=== PATIENT | male | born 1955 | race Caucasian/White ===

== ENCOUNTER 2022-05-19 22:58 | Inpatient (IN) ==
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
[2022-05-19 23:28] LABS: iSTAT Creatinine 0.9 mg/dl (0.6-1.3); iSTAT Ionized Calcium 1.04 mmol/l (1.12-1.32); iSTAT Potassium 4.5 mmol/L (3.3-5.0)
[2022-05-19 23:33] LABS: Basophils # (auto) 0.02 K/uL (0-0.2); Basophils % (auto) 0.2 %; Eosinophils # (auto) 0.01 K/uL (0-0.50); Eosinophils % (auto) 0.1 %; Hematocrit (blood only) 39.6 % (42.0-52.0); Hemoglobin 14.3 g/dl (14.0-18.0); Immature Granulocytes # (auto) 0.05 K/uL (0.01-0.20); Immature Granulocytes % (auto) 0.4 %; Lymphocytes # (auto) 2.03 K/uL (1.2-3.4); Mean Corpuscular Hemoglobin 36.4 pg (25.0-34.0); Mean Corpuscular Hgb Conc 36.1 g/dL (32.0-36.0); Mean Corpuscular Volume 100.8 fL (80.0-100.0); Mean Platelet Volume 9.6 fL (9.4-12.4); Monocytes # (auto) 1.64 K/uL (0.11-0.59); Monocytes % (auto) 12.9 %; Neutrophils # (auto) 8.92 K/uL (1.40-6.50); Neutrophils % (auto) 70.4 %; Platelet Count 227 K/uL (130-400); RDW Coefficient of Variation 13.8 % (11.5-14.5); RDW Standard Deviation 51.5 fL (36.4-46.3); Red Blood Count 3.93 M/uL (4.70-6.10); White Blood Count 12.67 K/ul (4.8-10.8)
[2022-05-19] MEDS ORDERED: OPTIRAY 350 100ml IV ONE (23:43)
[2022-05-20 00:30] LABS: Alanine Aminotransferase 23 U/L (7-52); Albumin Globulin Ratio 1.3 (0.9-2); Albumin Level 3.9 gm/dl (3.4-5.0); Alkaline Phosphatase 79 U/L (34-104); Anion Gap 12 (3-11); BUN Creatinine Ratio 12.1 (10-20); Bilirubin,Total 1.2 mg/dl (0.2-1.0); Blood Urea Nitrogen 12 mg/dl (6-23); Calcium 8.6 mg/dl (8.5-10.1); Carbon Dioxide 21 mmol/L (21-32); Chloride 95 mmol/L (98-107); Est GFR (African American) 91.6 ml/min; Globulin 3.1 gm/dl (2.5-4.0); Glucose 99 mg/dl (70-99(Fasting)); Sodium 128 mmol/L (136-145)
[2022-05-20 01:25] LABS: Potassium 3.3 mmol/L (3.5-5.1)
[2022-05-20 01:30] LABS: Appearance Urine Clear (Clear); Bilirubin Urine Negative (Negative); Blood Urine Negative (Negative); Color Urine Yellow; Glucose Urine UA Negative (Negative); Ketones Urine 1+ (Negative); Leukocyte Esterase Urine Negative (Negative); Nitrite Urine Negative (Negative); Protein Urine Negative (Negative); Specific Gravity Urine 1.027 (1.000-1.030); Urobilinogen Urine Negative (Negative); pH Urine 6.5 (4.5-7.5)
[2022-05-20 02:08] LABS: INR 1.1 (0.9-1.1); Prothrombin Time 11.8 Seconds (9.0-12.0)
[2022-05-20] MEDS ORDERED: MULTI-VITAMIN INFUSION 10 ML, THIAMINE HCL 100 MG, FOLIC ACID 1 MG in SODIUM CHLORIDE 0... IV ONE (03:15)
[2022-05-20 04:04] LABS: Troponin I High Sensitivity 21.3 pg/ml (0-20)
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
[2022-05-20 04:42] LABS: Magnesium 1.5 mg/dl (1.7-2.4)
[2022-05-20] MEDS ORDERED: Ativan IV Alcohol Withdrawal--Active Protocol IV PRN (06:58)
[2022-05-20] MEDS ORDERED: LORazepam 2 MG/1 ML VIAL IV PRN ×2 (06:58)
[2022-05-20] MEDS ORDERED: chlordiazePOXIDE ALCOHOL WITHDRAWL 50MG PO STA (06:58)
[2022-05-20] MEDS ORDERED: MAGNESIUM SULFATE / D5W 1 GM/100 ML BAG IV ONE (06:58)
[2022-05-20] MEDS ORDERED: POTASSIUM CHLORIDE CRTAB 20 MEQ TABCR PO STA (06:58)
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
[2022-05-20] MEDS: LACTATED RINGER'S 1,000 ML IV SCH ×2 (07:51→20:24)
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
[2022-05-20] MEDS: FOLIC ACID 1 MG TAB PO SCH (08:09)
[2022-05-20] MEDS: chlordiazePOXIDE HCl 25 MG CAP PO SCH ×3 (08:14→18:39)
[2022-05-20] MEDS: LORazepam 2 MG/1 ML VIAL IV PRN ×2 (08:14→12:13)
[2022-05-20 08:33] LABS: Acetaminophen < 3 ug/ml (10-30); Salicylate < 3.0 mg/dl (3.0-30)
[2022-05-20 08:34] LABS: Phosphorus 4.4 mg/dl (2.5-4.9)
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
[2022-05-20] MEDS: THIAMINE HCL 500 MG in SODIUM CHLORIDE 0.9% 50 ML IV SCH ×2 (10:08→17:20)
--- NOTE | 2022-05-20 11:34 | Electrocardiogram Report ---
Test Reason : Blood Pressure : / mmHG Vent. Rate : 106 BPM Atrial Rate : 106 BPM P-R Int : 160 ms QRS Dur : 124 ms QT Int : 394 ms P-R-T Axes : 060 -33 114 degrees QTc Int : 523 ms Sinus tachycardia with Premature atrial complexes Left axis deviation Left bundle branch block Abnormal ECG No previous ECGs available Confirmed by Juan R Marin ([id number]) on 05/20/2022 11:34:07 AM Referred By: REFERRED SELF Confirmed By:Edgardo Marin
[2022-05-20 12:34] LABS: Amphetamines+Metham, Urine Neg (Neg); Barbiturates, Urine Neg (Neg); Benzodiazepine, Urine Neg (Neg); Cocaine, Urine Neg (Neg); MDMA (Ecstacy), Urine Neg (Neg); Methadone, Urine Neg (Neg); Opiate, Urine Neg (Neg); Phencyclidine, Urine Neg (Neg)
[2022-05-21] MEDS: chlordiazePOXIDE HCl 25 MG CAP PO SCH ×4 (00:19→21:26)
[2022-05-21] MEDS: THIAMINE HCL 500 MG in SODIUM CHLORIDE 0.9% 50 ML IV SCH ×3 (00:20→17:48)
[2022-05-21 06:50] LABS: Hematocrit (blood only) 37.2 % (42.0-52.0); Hemoglobin 12.9 g/dl (14.0-18.0); Mean Corpuscular Hemoglobin 36.5 pg (25.0-34.0); Mean Corpuscular Hgb Conc 34.7 g/dL (32.0-36.0); Mean Corpuscular Volume 105.4 fL (80.0-100.0); Mean Platelet Volume 9.5 fL (9.4-12.4); Platelet Count 194 K/uL (130-400); RDW Coefficient of Variation 13.6 % (11.5-14.5); RDW Standard Deviation 52.3 fL (36.4-46.3); Red Blood Count 3.53 M/uL (4.70-6.10)
[2022-05-21 07:43] LABS: BUN Creatinine Ratio 12.2 (10-20); Bilirubin Direct 0.1 mg/dl (0-0.2); Bilirubin,Total 0.6 mg/dl (0.2-1.0); Est GFR (African American) 111.4 ml/min; Est GFR (Non-African American) 96.1 ml/min; Phosphorus 4.1 mg/dl (2.5-4.9); Potassium 3.5 mmol/L (3.5-5.1); Total Protein 5.3 gm/dl (6.0-8.3)
[2022-05-21] MEDS: FOLIC ACID 1 MG TAB PO SCH (08:40)
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
[2022-05-22] MEDS: THIAMINE HCL 500 MG in SODIUM CHLORIDE 0.9% 50 ML IV SCH ×2 (01:09→09:13)
[2022-05-22] MEDS: chlordiazePOXIDE HCl 25 MG CAP PO SCH ×2 (05:46→14:08)
[2022-05-22 06:13] LABS: Marijuana Quant, GCMS Urine 54 ng/mL (<5)
[2022-05-22] MEDS: FOLIC ACID 1 MG TAB PO SCH (09:15)
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
== END 2022-05-22 15:29 | disposition home or self-care (01) | DRG 897 ==
LOC: ED 22:58 → 2N 05-20 04:18 → SUATTDRO 05-20 04:18 → 2N 05-20 05:33